=== PATIENT | female | born 1975 | race Caucasian/White ===

== ENCOUNTER 2023-02-19 07:52 | Outpatient (CLI) | payer BC, SELFPAY | END 2023-02-19 07:53 | disposition home or self-care (01) | LOC: INJ CL 07:55 | PROVIDERS: PCP Physician Assistant; Visit Provider Family Medicine | DX: M47.816 Spondylosis without myelopathy or radiculopathy, lumbar region (principal) | CPT/HCPCS: 64493; J0702; Q9966 ==

== ENCOUNTER 2024-01-09 16:15 | Outpatient (RCR) | payer BC, SELFPAY | END 2024-04-24 08:14 | disposition home or self-care (01) | PROVIDERS: PCP Physician Assistant; Visit Provider Physician Assistant | DX: M25.561 Pain in right knee (principal); M25.562 Pain in left knee; Z51.89 Encounter for other specified aftercare; M22.2X1 Patellofemoral disorders, right knee; M22.2X2 Patellofemoral disorders, left knee; R29.3 Abnormal posture | CPT/HCPCS: 97110; 97112; 97162; 97535 ==